=== PATIENT | female | born 1990 | race Caucasian/White ===

== ENCOUNTER 2021-08-22 07:48 | Inpatient (IN) ==
[2021-08-22] MEDS ORDERED: OXYTOCIN 30 UNITS/500 ML BAG IV PRN ×3 (08:04→23:09)
[2021-08-22 09:03] LABS: Hematocrit (blood only) 37.2 % (37-47); Hemoglobin 12.7 g/dL (12.0-16.0); Mean Corpuscular Hemoglobin 29.1 pg (25-34); Mean Corpuscular Hgb Conc 34.1 g/dL (32-36); Mean Corpuscular Volume 85.3 fL (80-100); Mean Platelet Volume 10.8 fL (7.4-10.4); Platelet Count 202 K/uL (130-400); RDW Standard Deviation 40.6 fL (36.4-46.3); Red Blood Count 4.36 M/uL (4.2-5.4); White Blood Count 14.48 K/uL (4.8-10.8)
[2021-08-22 09:03] LABS: Creatinine Urine Random 57.6 mg/dl; Protein Creatinine Ratio Urine 0.2 (0-0.2); Total Protein Urine Random 13.2 mg/dl (0-11.9)
--- NOTE | 2021-08-22 09:05 | History & Physical Report ---
Date of Service August 22, 2021 Assessment & Plan (1) Chronic hypertension affecting : Plan: 30 y/o G1 at 38 3/7 wga presenting for IOL for cHTN no meds VSS Fetus cat 1 Labor - chong bulb removed and pt 3cm. Will start pitocin cHTN - baseline labs ordered, asymptomatic GBS neg Epidural prn Admission and Anticipated Discharge Date Admission Date: August 22, 2021 History of Present Illness Chief Complaint: IOL Primary Care Provider: Sonia Trevino MD 30 y/o G1 at 38 3/7 wga w/ [place] 09/02 by LMP c/w 1st tri US presents for IOL for cHTN no meds. +FM; denies regular ctx, LOF, VB. Denies MARSHALL, vision change, CP, SOB, RUQ/epigastric pain PNI: cHTN no meds thyroid nodule Past [employer] Hx: G1 Cycles q27-31d Denies hx STIs 01/2021 neg cytology, denies hx abnl Allergies Allergy/AdvReac Type Severity Reaction Status Date / Time No Known Allergies Allergy Unknown Uncoded 07/25/21 14:50 Home Medications Medication Instructions Recorded Confirmed Type prenat.vits,marlo,[id number] 1 tab PO DAILY 01/07/21 08/22/21 History aspirin 81 mg tablet,delayed 81 mg PO DAILY 03/05/21 08/22/21 History release (Adult Low Dose Aspirin) loratadine 10 mg tablet (Claritin) 10 mg PO DAILY 03/05/21 08/22/21 History Patient History Medical History (Updated 08/22/21 @ 09:07 by Victoria Rehman MD) Family history of hypothyroidism Solitary thyroid nodule Subungual hematoma Surgical History (Updated 11/03/19 @ 08:44 by Lisa Navarrete) History of wisdom tooth extraction Family History (Updated 03/05/21 @ 12:38 by Carito Valladares) Grandmother (Paternal) Glaucoma Grandmother (Maternal) Glaucoma Father Hypothyroidism Other Myocardial infarction Denies family history of Ovarian cancer Prostate cancer Breast cancer Colorectal cancer Social History (Updated 03/05/21 @ 12:37 by Carito Valladares) Smoking Status: Never smoker Second Hand Exposure: No; Hx Alcohol Use: No Hx Substance Use: No Preferred Language: Kinyarwanda Communication Ability: Effective Windshield Repair Technician Required: No Beliefs That Will Affect Care: None marital status: marital status details: Gautam (28) [phone] Current Living Situation: Spouse Current Living Situation Comment: Lives with and 2 dogs current occupational status: employed current occupation: physical therapist Other Information That Helps Us Care for You: No Feels Safe at Home: Yes Safety Concerns: Feels Safe At This Time Assistive Devices: None Physical Exam Constitutional: WD/WN, vitals as above Respiratory: normal respiratory effort; no respiratory distress and no labored breathing Genitourinary: OB Exam Abdomen: + vertex (by suture confirmed by BSUS) and + estimated weight (7-8) Manual OB Exam: + cervical dilation 3 cm, + cervical effacement 70% and + station -2 OB Exam Monitor Tracing: + external FHT monitor used, + external uterine monitor used (irreg) and + category I (140/mod/+accel/-decel) Chong balloon palpated in vagina and removed prior to cervical check Results & Data ([facility]) Vital Signs (Past 12 Hours) Vital Signs Temp Pulse Resp BP 08/22/21 07:51 98.6 F 90 20 146/83 H Laboratory Results OB Labs: Blood Type A Positive 01/21/21 Antibody Screen NEGATIVE 01/21/21 Hemoglobin 12.8 g/dL (12.0-16.0) 06/09/21 Hematocrit 39.0 % (37-47) 06/09/21 Mean Corpuscular Volume 85.9 fL (80-100) 01/21/21 Platelet Count 253 K/uL (130-400) 01/21/21 Rubella IgG Antibody Immune (Immune) 01/21/21 Rapid Plasma Reagin Nonreactive (Nonreactive) 01/21/21 Hepatitis B Surface Antigen Neg (Neg) 01/21/21 HIV (1&2) Ab and P24 Ag, 4th Gener Neg (Neg) 01/21/21 Glucose 1 Hour 50 gm Load 82 mg/dl (70-130) 06/09/21 OB Optional Labs: Chlamydia trachomatis RNA NOT DETECTED (NOT DETECTED) 01/21/21 Neisseria gonorrhoeae RNA NOT DETECTED (NOT DETECTED) 01/21/21 Thyroid Stimulating Hormone (TSH) 2.550 uIu/ml (0.300-4.500) 06/09/21 low risk cfdna neg cf/sma GBS neg Coding Level of Care Code None Diagnoses Chronic hypertension affecting O10.919
[2021-08-22] MEDS: LACTATED RINGER'S 1,000 ML IV PRN ×3 (09:19→20:50)
[2021-08-22 09:29] LABS: Albumin Level 2.4 gm/dl (3.4-5.0); Calcium 9.3 mg/dl (8.5-10.1); Est GFR (African American) 142.8 ml/min; Est GFR (Non-African American) 123.2 ml/min; Potassium 3.7 mmol/L (3.5-5.1)
[2021-08-22 09:31] LABS: Albumin Globulin Ratio 0.6 (0.9-2); Bilirubin,Total 0.4 mg/dl (0.2-1); Total Protein 6.4 gm/dl (6.4-8.2)
[2021-08-22] MEDS ORDERED: PATIENT'S ALLERGY INFO NEEDS ENTERED SCH (11:15)
--- NOTE | 2021-08-22 13:26 | Labor Progress Brief Note ---
Date of Service August 22, 2021 Subjective Comfortable, feeling some tightening but not painful Assessment & Plan (1) Chronic hypertension affecting : Plan: 30 y/o G1 at 38 3/7 wga presenting for IOL for cHTN no meds VSS Fetus cat 1 Labor - pit at 10, s/p arom to try to get better and more painful contraction pattern cHTN - baseline labs wnl, asymptomatic. BPs wnl GBS neg Epidural prn Admission and Anticipated Discharge Date Admission Date: August 22, 2021 Physical Exam Genitourinary: Manual OB Exam: + cervical dilation (3-4), + cervical effacement 70%, + station -2 and + amniotic fluid (arom clear) OB Exam Monitor Tracing: + external FHT monitor used, + external uterine monitor used (irreg) and + category I (120/mod/+accel/-decel) Results & Data ([facility]) Vital Signs (Past 12 Hours) Vital Signs Temp Pulse Resp BP 08/22/21 12:31 97.7 F 67 16 131/82 08/22/21 11:32 66 127/86 08/22/21 10:30 72 18 124/79 08/22/21 10:15 63 20 128/83 08/22/21 10:00 75 132/82 08/22/21 09:45 71 20 132/84 08/22/21 09:29 68 122/80 08/22/21 09:02 98.6 F 90 20 146/83 H 08/22/21 07:51 98.6 F 90 20 146/83 H Coding Level of Care Code None Diagnoses Chronic hypertension affecting O10.919
--- NOTE | 2021-08-22 16:25 | Labor Progress Brief Note ---
Date of Service August 22, 2021 Subjective Getting very uncomfortable Assessment & Plan (1) Chronic hypertension affecting : Plan: 30 y/o G1 at 38 3/7 wga presenting for IOL for cHTN no meds VSS Fetus cat 1 Labor - progressing nicely, getting uncomfortable cHTN - baseline labs wnl, asymptomatic. BPs mild range however suspect due to pain as she is visibly uncomfortable now GBS neg Desires epidural now, anesthesia made aware Admission and Anticipated Discharge Date Admission Date: August 22, 2021 Physical Exam Genitourinary: Manual OB Exam: + cervical dilation (4-5), + cervical effacement 80% and + station -1 OB Exam Monitor Tracing: + external FHT monitor used, + external uterine monitor used (irreg) and + category I (125/mod/+accel/-decel) Results & Data ([facility]) Vital Signs (Past 12 Hours) Vital Signs Temp Pulse Resp BP 08/22/21 15:57 64 141/87 H 08/22/21 15:35 97.9 F 62 20 152/101 H 08/22/21 15:34 65 160/108 H 08/22/21 14:31 70 131/80 08/22/21 13:51 98.1 F 08/22/21 13:31 65 128/88 08/22/21 12:31 97.7 F 67 16 131/82 08/22/21 11:32 66 127/86 08/22/21 10:30 72 18 124/79 08/22/21 10:15 63 20 128/83 08/22/21 10:00 75 132/82 08/22/21 09:45 71 20 132/84 08/22/21 09:29 68 122/80 08/22/21 09:02 98.6 F 90 20 146/83 H 08/22/21 07:51 98.6 F 90 20 146/83 H Coding Level of Care Code None Diagnoses Chronic hypertension affecting O10.919
--- NOTE | 2021-08-22 16:25 | Anesthesiology Consultation ---
Date of Service August 22, 2021 Assessment & Plan (1) Encounter for pre-operative examination: Chart Review Chart Review: Acceptable Risk for Labor Epidural History Height/Weight Height: 5 ft 7.5 in Weight: 74.389 kg Allergies Allergy/AdvReac Type Severity Reaction Status Date / Time No Known Allergies Allergy Unknown Uncoded 07/25/21 14:50 Medications Home Medications Medication Instructions Recorded Confirmed Last Taken prenat.vits,marlo,grj-[id number]-ttsgd 1 tab PO DAILY 01/07/21 08/22/21 08/22/21 07:00 aspirin 81 mg tablet,delayed 81 mg PO DAILY 03/05/21 08/22/21 08/21/21 08:30 release (Adult Low Dose Aspirin) loratadine 10 mg tablet (Claritin) 10 mg PO DAILY 03/05/21 08/22/21 08/19/21 08:30 Active Medications Generic Name Dose Route Start Last Admin Trade Name Freq PRN Reason Stop Dose Admin Lactated Ringer's 1,000 mls @ 125 mls/hr 08/22/21 08:04 08/22/21 16:23 Lr IV 08/24/21 08:03 999 mls/hr .Q8H PRN Administration L&D Protocol Protocol Oxytocin 30 units in 500 mls @ 14 mls/hr 08/22/21 08:59 08/22/21 14:45 Pitocin IV 08/24/21 08:58 0.84 units/hr .Q24H PRN 14 mls/hr Labor Induction/Augmentation Titration Protocol 0.84 UNITS/HR Past Medical History Medical History Family history of hypothyroidism Solitary thyroid nodule Subungual hematoma Past Family History Family History Grandmother (Paternal) Glaucoma Grandmother (Maternal) Glaucoma Father Hypothyroidism Other Myocardial infarction Denies family history of Ovarian cancer Prostate cancer Breast cancer Colorectal cancer Past Surgical History Surgical History History of wisdom tooth extraction Social History Smoking Status: Never smoker Hx Alcohol Use: No Hx Substance Use: No substance use type: does not use Physical Exam Vital Signs Last Vital Signs Temp 36.6 C 08/22/21 15:35 Pulse 64 08/22/21 15:57 Resp 20 08/22/21 15:35 BP 141/87 H 08/22/21 15:57 Testing Laboratory Results 08/22/21 08:41 08/22/21 08:41
[2021-08-22] MEDS ORDERED: SODIUM CHLORIDE 0.9% INJ 10 ML VIAL ONE (16:28)
[2021-08-22] MEDS ORDERED: fentaNYL citrate 100 MCG/2 ML VIAL ONE (16:28)
[2021-08-22] MEDS ORDERED: ePHEDrine sulfate 50 MG/ML AMP ONE (16:28)
[2021-08-22] MEDS ORDERED: BUPIVACAINE 0.25% 30 ML VIAL ONE (16:28)
[2021-08-22] MEDS ORDERED: fentaNYL 2MCG/ML ROPIVACAINE 1.25MG/ML 100 ML BAG EPI ONE (16:29)
[2021-08-22] MEDS ORDERED: fentaNYL 2MCG/ML ROPIVACAINE 1.25MG/ML 100 ML BAG EPI PRN (16:53)
[2021-08-22] MEDS ORDERED: ONDANSETRON INJ 2 MG/ML 2 ML VIAL IV PRN (16:53)
[2021-08-22] MEDS ORDERED: ePHEDrine sulfate 50 MG/ML AMP IV PRN (16:53)
[2021-08-22] MEDS ORDERED: NALOXONE HCL 0.4 MG/1 ML VIAL/CARP IV PRN (16:53)
[2021-08-22] MEDS ORDERED: NALOXONE HCL 1 MG in SODIUM CHLORIDE 0.9% 1000ML 1,000 ML IV PRN (16:53)
--- NOTE | 2021-08-22 19:13 | Labor Progress Brief Note ---
Date of Service August 22, 2021 Subjective some right sided pain but much more comfortable Assessment & Plan (1) Chronic hypertension affecting : Plan: 30 y/o G1 at 38 3/7 wga presenting for IOL for cHTN no meds VSS Fetus cat 1 Labor - will labor down an start pushing cHTN - baseline labs wnl, asymptomatic. BPs normalized GBS neg Epidural in place Admission and Anticipated Discharge Date Admission Date: August 22, 2021 Physical Exam Genitourinary: Manual OB Exam: + cervical dilation (4-5) 10 cm, + cervical effacement 100% and + station + 2 OB Exam Monitor Tracing: + external FHT monitor used, + external uterine monitor used (q3) and + category I (120/mod/+accel/-decel) Results & Data ([facility]) Vital Signs (Past 12 Hours) Vital Signs Temp Pulse Resp BP Pulse Ox 08/22/21 19:06 81 96 08/22/21 19:05 98.1 F 18 08/22/21 19:01 85 97 08/22/21 18:59 72 128/72 08/22/21 18:56 60 98 08/22/21 18:51 60 97 08/22/21 18:46 65 97 08/22/21 18:44 64 122/67 08/22/21 18:41 61 97 08/22/21 18:36 66 97 08/22/21 18:31 64 96 08/22/21 18:29 65 127/74 08/22/21 18:26 66 97 08/22/21 18:21 62 97 08/22/21 18:16 63 97 08/22/21 18:15 67 133/74 08/22/21 18:11 71 96 08/22/21 18:06 71 97 08/22/21 18:01 70 97 08/22/21 17:59 67 135/84 08/22/21 17:56 64 96 08/22/21 17:51 63 96 08/22/21 17:46 76 97 08/22/21 17:45 67 124/79 08/22/21 17:44 69 119/76 08/22/21 17:41 61 96 08/22/21 17:36 64 96 08/22/21 17:31 63 96 08/22/21 17:29 60 122/78 08/22/21 17:26 68 97 08/22/21 17:21 67 97 08/22/21 17:16 68 96 08/22/21 17:15 71 20 120/76 08/22/21 17:11 76 97 08/22/21 17:06 72 96 08/22/21 17:01 66 96 08/22/21 16:57 98.2 F 67 20 117/63 08/22/21 16:56 71 96 08/22/21 16:55 68 118/63 08/22/21 16:53 65 117/61 94 08/22/21 16:51 63 20 118/65 98 08/22/21 16:49 60 117/67 08/22/21 16:47 64 22 126/65 08/22/21 16:46 72 119/65 98 08/22/21 16:41 87 99 08/22/21 16:36 80 99 08/22/21 16:31 73 146/89 H 08/22/21 15:57 64 141/87 H 08/22/21 15:35 97.9 F 62 20 152/101 H 08/22/21 15:34 65 160/108 H 08/22/21 14:31 70 131/80 08/22/21 13:51 98.1 F 08/22/21 13:31 65 128/88 08/22/21 12:31 97.7 F 67 16 131/82 08/22/21 11:32 66 127/86 08/22/21 10:30 72 18 124/79 08/22/21 10:15 63 20 128/83 08/22/21 10:00 75 132/82 08/22/21 09:45 71 20 132/84 08/22/21 09:29 68 122/80 08/22/21 09:02 98.6 F 90 20 146/83 H 08/22/21 07:51 98.6 F 90 20 146/83 H Coding Level of Care Code None Diagnoses Chronic hypertension affecting O10.919
--- NOTE | 2021-08-22 21:15 | Delivery Summary ---
Vaginal Delivery Summary Date of Service August 22, 2021 Vaginal Delivery Summary and 2nd Degree LAC PREOPERATIVE DIAGNOSIS: 1. Single intrauterine at 38 3/7 2. Chronic hypertension without medication POSTOPERATIVE DIAGNOSIS: 1. Single intrauterine at 38 3/7 2. Chronic hypertension without medication 3. Delivered PROCEDURE: 1. Normal spontaneous vaginal delivery. SURGEON: Victoria Rehman MD ANESTHESIA: Epidural. ESTIMATED BLOOD LOSS: 300 mL FLUIDS: Continuous LR. URINE OUTPUT: None. COMPLICATIONS: None. CONDITION: Stable. INDICATIONS: 30 y/o G1 at 38 3/7 wga presented for IOL for cHTN w/o medication today. She underwent chong bulb placement last evening and that was removed this morning. She was started on pitocin. She underwent artificial rupture of membranes and received an epidural. She progressed to complete and desired to push FINDINGS: A viable male infant, weight pending with Apgars of 8 and 9 at 1 and 5 minutes respectively. SPECIMEN: Cord blood OPERATIVE REPORT: The patient progressed to 10 cm, 100% effaced and +2 station, pushed over intact perineum with anesthesia to deliver a viable male infant, weight and Apgars as above. Head of delivered in SOFI position. No nuchal cord was present. Body and shoulders were delivered without difficulty. was delivered to maternal abdomen and nursing staff. Delayed cord clamping was performed for 60 seconds. Cord was clamped and cut. Cord blood was obtained. Placenta delivered spontaneously intact with 3-vessel cord. IV oxytocin and fundal massage were given for excellent hemostasis. Vagina, cervix, perineum, and placenta were inspected. A second degree and R labial laceration were noted and repaired using 3-0 and 4-0 vicryl in the usual fashion. A hemostatic L labial laceration was noted and not needed to be repaired. Sponge and needle counts correct x2. No sponges were left behind. Mother and stable in immediate period. [facility] Vaginal Delivery Charge Vaginal Delivery Codes: 53049 global code for the antepartum, delivery, and post- Delivery Type Details: and 2nd Degree LAC
[2021-08-22] MEDS ORDERED: HYDROCORTISONE ACETATE 25 MG SUPP PR PRN (23:09)
[2021-08-22] MEDS ORDERED: SUPERCREAM 0.870% 15 GM JAR EXT PRN (23:09)
[2021-08-22] MEDS ORDERED: bisacodyL 10 MG SUPP PR PRN (23:09)
[2021-08-22] MEDS ORDERED: BENZOCAINE 20% AER SPR 82.5 GM CAN EXT PRN (23:09)
[2021-08-22] MEDS ORDERED: ACETAMINOPHEN 325 MG TAB PO PRN (23:09)
[2021-08-22] MEDS ORDERED: DIPHTHERIA/TETANUS/PERTUSSIS 0.5 ML SYR/VIAL IM ONE (23:09)
--- NOTE | 2021-08-22 23:38 | Anesthesia Procedure Note ---
Date of Service August 22, 2021 Anesthesia Post Epidural Note Vital Signs Vital Signs: Temp Pulse Resp BP Pulse Ox 36.7 C 71 18 138/83 96 08/22/21 21:00 08/22/21 22:53 08/22/21 23:00 08/22/21 22:53 08/22/21 20:51 Pain Intensity Back: Pain Intensity: 4 Notes Mental Status: alert / awake / arousable and participated in evaluation Nausea / Vomiting: adequately controlled Pain: adequately controlled Airway Patency, RR, SpO2: stable & adequate BP & HR: stable & adequate Hydration State: stable & adequate Neuraxial Anesthesia: was administered and sensory block is resolving Anesthetic Complications: no major complications apparent Epidural: Removed without complications and With tip intact
--- NOTE | 2021-08-23 06:20 | Obstetrical Progress Note ---
Date of Service <Farrah Dey DO - Last Filed: 08/23/21 06:33> August 23, 2021 Assessment & Plan <Farrah Dey DO - Last Filed: 08/23/21 06:33> (1) Chronic hypertension affecting : (2) Encounter for care and examination after delivery: 30 yo post op day1 from [facility] with chronic HTN, doing well. -Continue routine post care. -vital signs reviewed and WNL (Tmax 37.0) -Blood Type A+, GBS-, Rubella immune -Encourage ambulation, monitor and control pain with Motrin, tylenol PRN, resume regular diet, monitor lochia -encourage breast feeding -hemoglobin 12.7 Day #:: 1 <Victoria Rehman MD - Last Filed: 08/23/21 07:35> (1) Chronic hypertension affecting : (2) Encounter for care and examination after delivery: Subjective <Farrah Dey DO - Last Filed: 08/23/21 06:33> Ambulation: ambulating normally Voiding: no voiding problems Passing Gas:: Yes Diet Tolerance:: regular diet Lochia:: Small Feeding Type:: breast feeding Current Pain Level(1-10): 0 (pain well controlled on medication) Review of Systems Denies fever, chills, sweats Denies shortness of breath, difficulty breathing, chest pain, palpitations, chest pressure. Denies breast pain. Denies dysuria. Denies headache or changes in vision. Physical Exam <Farrah Dey DO - Last Filed: 08/23/21 06:33> General: Alert, oriented. No acute distress. Cardiac: Regular rate and rhythm, no murmurs/rubs/gallops. Respiratory: Clear to auscultation bilaterally a/p, no wheezes/rales/rhonchi. No increased work of breathing. Symmetrical chest rise. No respiratory distress. Abdomen: Soft, nontender, nondistended. Bowel sounds present. Uterus: Uterine fundus firm, palpable 1 cm below umbilicus. Lower Extremities: No lower extremity edema or swelling. No deep calf pain. Evelyne's negative bilaterally.. Results & Data ([facility]) <Farrah Dey DO - Last Filed: 08/23/21 06:33> Vital Signs (Past 12 Hours) Vital Signs Temp Pulse Pulse Resp BP BP Pulse Ox 08/23/21 03:54 37.0 C 74 18 117/70 08/22/21 23:28 36.9 C 68 18 149/87 H 08/22/21 23:00 18 08/22/21 22:53 71 138/83 08/22/21 22:51 68 131/82 08/22/21 22:31 79 133/85 08/22/21 22:30 18 08/22/21 22:11 78 121/83 08/22/21 22:01 72 120/72 08/22/21 22:00 18 08/22/21 21:51 75 124/73 08/22/21 21:45 18 08/22/21 21:41 80 132/76 08/22/21 21:31 74 133/76 08/22/21 21:30 18 08/22/21 21:21 75 143/84 H 08/22/21 21:15 18 08/22/21 21:11 73 134/79 08/22/21 21:00 36.7 C 18 08/22/21 20:59 80 132/74 08/22/21 20:51 86 96 08/22/21 20:46 86 96 08/22/21 20:44 80 131/84 08/22/21 20:41 86 96 08/22/21 20:36 143 H 99 08/22/21 20:31 87 95 08/22/21 20:30 20 08/22/21 20:29 93 H 89 L 08/22/21 20:26 92 H 100 08/22/21 20:23 116 H 91 08/22/21 20:21 121 H 83 L 08/22/21 20:18 88 89 L 08/22/21 20:16 98 H 100 08/22/21 20:15 36.6 C 97 H 18 124/71 08/22/21 20:11 84 99 08/22/21 20:06 71 100 08/22/21 20:01 73 99 08/22/21 20:00 68 18 137/80 08/22/21 19:56 71 100 08/22/21 19:51 69 100 08/22/21 19:46 72 100 08/22/21 19:45 74 129/82 08/22/21 19:41 74 100 08/22/21 19:36 69 100 08/22/21 19:31 68 100 08/22/21 19:30 18 08/22/21 19:29 66 137/80 08/22/21 19:26 67 100 08/22/21 19:21 70 100 08/22/21 19:16 66 132/79 100 08/22/21 19:15 18 08/22/21 19:11 72 100 08/22/21 19:06 81 96 08/22/21 19:05 36.7 C 18 08/22/21 19:01 85 97 08/22/21 18:59 72 128/72 08/22/21 18:56 60 98 08/22/21 18:51 60 97 08/22/21 18:46 65 97 08/22/21 18:44 64 122/67 08/22/21 18:41 61 97 08/22/21 18:36 66 97 08/22/21 18:31 64 96 08/22/21 18:29 65 127/74 08/22/21 18:26 66 97 08/22/21 18:21 62 97 <Victoria Rehman MD - Last Filed: 08/23/21 07:35> Co-Signing Physician Notes Resident Physician Supervision Note: I interviewed and examined the patient. Discussed with Dr. Dey and agree with findings and plan as documented in the note. Any exceptions or clarifications are listed here: PP1 s/p after IOL for cHTN no meds. Meeting pp milestones, VSS, exam benign. Continue routine pp care Documented By: Victoria Rehman MD Resident Activity Tracking <Farrah Dey DO - Last Filed: 08/23/21 06:33> Resident Involvement: Resident Care Provided Care Provided: OB Delivery
[2021-08-23] MEDS: PRENATAL VITAMIN 1 TAB PO SCH (08:32)
[2021-08-23] MEDS: IBUPROFEN 600 MG TAB PO PRN ×3 (08:32→17:52)
[2021-08-23] MEDS: DOCUSATE SODIUM 100 MG CAP PO SCH ×2 (08:32→20:20)
[2021-08-23] MEDS ORDERED: bisacodyL 5 MG TABEC PO SCH (20:00)
[2021-08-24] MEDS: IBUPROFEN 600 MG TAB PO PRN ×2 (01:04→08:42)
--- NOTE | 2021-08-24 07:10 | Obstetrical Progress Note ---
Date of Service August 24, 2021 Assessment & Plan (1) Encounter for care and examination after delivery: (2) Chronic hypertension affecting : Pressures have been good. Not on any chronic medications. Plan d/c. Instructions given. f/u in the office late in the week for a blood pressure check. Subjective Ambulation: ambulating normally Voiding: no voiding problems Passing Gas:: Yes Diet Tolerance:: regular diet Lochia:: Small Feeding Type:: breast feeding Physical Exam Constitutional WD/WN, vitals as above Cardiovascular Extremities: no calf tenderness and no edema Gastrointestinal (Abdomen) soft, nt, nd ff/nt 1 below u Results & Data ([facility]) Vital Signs (Past 12 Hours) Vital Signs Temp Pulse Resp BP Pulse Ox 08/23/21 23:20 36.8 C 74 16 125/76 97
[2021-08-24] MEDS: DOCUSATE SODIUM 100 MG CAP PO SCH (08:42)
[2021-08-24] MEDS: PRENATAL VITAMIN 1 TAB PO SCH (08:42)
== END 2021-08-24 13:50 | disposition home or self-care (01) | DRG 807 ==
LOC: 4S1 07:48 → 4S2 23:46

== ENCOUNTER 2024-03-07 14:01 | Inpatient (IN) ==
--- NOTE | 2024-03-07 14:12 | History & Physical Report ---
Date of Service March 07, 2024 Assessment & Plan (1) Uterine contractions at greater than 20 weeks of gestation: (2) Normal labor: Plan L&D admit as inpatient order set placed, including, CBC w/out diff, blood bank hold, IV fluids (LR, 125 mL/hr), and Oxytocin, PRN (20 U/hr, for bleeding). External heart monitor and external tocodynamometer already placed. Cervix checked and patient already completely effaced, fully dilated, already in active labor and will begin pushing with her contractions. History of Present Illness Chief Complaint: frequent contractions, pain 7/10 w/ contractions, Primary Care Provider: Sonia Trevino MD , 39w6d, confirmed via ultrasound. Here for vaginal delivery. There have been no complications with this . Has been attending OB appointments regularly. Currently taking levothyroxine and pre-vasquez vitamins. Patient arrives with very frequent contractions, back and abdominal pain, significant pelvic pressure. Contractions: yes, very frequent Fluid or Blood loss: none Movement: active Labs - Blood type, A+ - Antibody screen, negative - Hgb, 13.1 - Hct, 38.6 - Wbc, 16.6 - Plt, 190 - Rubella, immune - VDRL/RPR, non-reactive - Gonorrhea, not detected - Chlamydia, not detected - HIV, non-reactive - HbSAg, non-reactive - GBS, negative - Glucose tolerance x 2, 134 Allergies Allergy/AdvReac Type Severity Reaction Status Date / Time No Known Allergies Allergy Verified 03/07/24 14:47 Home Medications Medication Instructions Recorded Confirmed Type prenat.vits,marlo,ljn-uexb-xpirw 1 tab PO DAILY 01/07/21 03/07/24 History levothyroxine 100 mcg tablet 100 mcg PO DAILY 03/07/24 03/07/24 History Past Med/Surg History Problem List (Updated 03/07/24 @ 16:20 by Javi Merrill MD) Normal labor Uterine contractions at greater than 20 weeks of gestation Encounter for supervision of normal in multigravida Hypothyroid in , antepartum Hypothyroidism Vitamin D deficiency, unspecified Family history of hypothyroidism Encounter for anatomic survey Non-smoker (Acute) Elevated blood pressure reading in office without diagnosis of hypertension (Acute) Medical History (Updated 03/07/24 @ 16:20 by Javi Merrill MD) Missed with demise before 20 completed weeks of gestation with uncertain viability Varicella vaccination Post thyroiditis Chronic hypertension affecting Solitary thyroid nodule Subungual hematoma Surgical History History of wisdom tooth extraction Family History Grandmother (Paternal) Glaucoma Grandmother (Maternal) Glaucoma Father Hypothyroidism Other Myocardial infarction Denies family history of Ovarian cancer Prostate cancer Breast cancer Colorectal cancer Social History Smoking Status: Never smoker Second Hand Exposure: No; Do You Dip or Chew Tobacco: No; Hx Alcohol Use: No Hx Substance Use: No Preferred Language: Guatemalan Communication Ability: Effective Ventilation Mechanic Required: No Beliefs That Will Affect Care: None marital status: marital status details: Gautam Reyes (30) [phone] Current Living Situation: Family Current Living Situation Comment: Lives with , child and 2 dogs current occupational status: employed current occupation: physical therapist Other Information That Helps Us Care for You: No Feels Safe at Home: Yes Safety Concerns: Feels Safe At This Time Assistive Devices: None Review of Systems Constitutional: + body aches; no fever and no chills Eyes: no diplopia, not seeing flashes and no worsening vision Respiratory: no cough, no chest congestion and no dyspnea Cardiovascular: no chest pain and no palpitations Gastrointestinal: + abdominal pain (w/ contractions) and + constant urge to pass stools (due to pressure associated w/ contractions); no nausea, no vomiting, no constipation and no diarrhea/loose stools Musculoskeletal: + back pain Integumentary: no rash, no lesions and no pruritus Neurologic: no tingling, no numbness and no headache(s) Physical Exam Constitutional: WD/WN, vitals as above Respiratory: normal respiratory effort, lungs clear to auscultation Cardiovascular: RRR, no murmur, no edema Extremities: normal capillary refill; no calf tenderness and no pedal edema Gastrointestinal (Abdomen): Inspection/Auscultation: abdomen normal to inspection, normal bowel sounds and + significant pannus (gravid uterus) Skin: no rashes, warm and dry Psychiatric: A+Ox3, euthymic affect Genitourinary: Manual OB Exam: + cervical dilation 10 cm and + cervical effacement 100% OB Exam Monitor Tracing: + external FHT monitor used and + external uterine monitor used Results & Data Results & Data Vital Signs (Past 12 Hours) Vital Signs Pulse BP 03/07/24 14:09 71 141/81 H Supervising Physician Co-Signing Physician Notes Resident Physician Supervision Note: I was present with Dr. Hamlin during the history and exam. I discussed the case with the resident and agree with the findings and plan as documented in the note. Any exceptions or clarifications are listed here: [None] Documented By: David Villegas MD, FACOG
[2024-03-07] MEDS ORDERED: LACTATED RINGER'S 1,000 ML IV PRN (14:18)
[2024-03-07] MEDS ORDERED: LIDOCAINE 1% LOCAL 20 ML VIAL INFIL PRN (14:18)
[2024-03-07] MEDS ORDERED: ACETAMINOPHEN 325 MG TAB PO PRN (14:37)
[2024-03-07] MEDS ORDERED: BENZOCAINE 20% SPRY 85 APPLN/85 GM CAN EXT PRN (14:37)
[2024-03-07] MEDS ORDERED: oxyCODONE/ACETAMINOPHEN 5mg/325mg TAB PO PRN (14:37)
[2024-03-07] MEDS ORDERED: HYDROCORTISONE ACETATE 25 MG SUPP PR PRN (14:37)
[2024-03-07] MEDS ORDERED: OXYTOCIN 30 UNITS/NSS 30 UNITS/500 ML BAG IV PRN (14:37)
[2024-03-07] MEDS ORDERED: bisacodyL 10 MG SUPP PR PRN (14:37)
[2024-03-07] MEDS ORDERED: DIPHTHER/TETAN/PERTUS Vaccine (Tdap, Adol/Adult) 0.5mL IM ONE (14:37)
--- NOTE | 2024-03-07 14:39 | Delivery Summary ---
Vaginal Delivery Summary Date of Service March 07, 2024 Vaginal Delivery Summary Spontaneous vaginal delivery the patient arrived from home was her second baby GBS negative in active labor she was checked and found to be fully dilated with a bulging bag of membranes I offered the patient to try and get an epidural but she had a desire to push uncontrollably so I recommended artificial rupture of membranes this was done for clear fluid she then delivered the baby's head shortly thereafterwards no nuchal cord fluid was clear gentle traction on the baby no excessive force no difficulties with delivery live vigorous female infant cord clamped and cut cord blood obtained placenta removed with gentle traction IV Pitocin started perineum inspected there was no sign of tearing sponge and instrument counts correct quantitative blood loss 50 mL [facility] Vaginal Delivery Charge Delivery Type Details:
[2024-03-07] MEDS: OXYTOCIN 30 UNITS/NSS 30 UNITS/500 ML BAG IV PRN (14:40)
[2024-03-07] MEDS ORDERED: LACTATED RINGER'S 1,000 ML IV SCH (14:45)
[2024-03-07] MEDS: IBUPROFEN 600 MG TAB PO PRN (14:59)
[2024-03-07] MEDS: OXYTOCIN 30 UNITS/500ML NSS IV ONE (15:00)
[2024-03-07 15:30] LABS: Hematocrit (blood only) 38.6 % (37.0-47.0); Hemoglobin 13.1 g/dl (12.0-16.0); Mean Corpuscular Hgb Conc 33.9 g/dL (32.0-36.0); Mean Corpuscular Volume 85.4 fL (80.0-100.0); Mean Platelet Volume 10.3 fL (9.4-12.4); Platelet Count 190 K/uL (130-400); RDW Coefficient of Variation 12.4 % (11.5-14.5); RDW Standard Deviation 38.5 fL (36.4-46.3); Red Blood Count 4.52 M/uL (4.20-5.40); White Blood Count 16.63 K/ul (4.8-10.8)
[2024-03-07] MEDS ORDERED: ZOLPIDEM TARTRATE 5 MG TAB PO PRN (19:57)
[2024-03-07] MEDS: DOCUSATE SODIUM 100 MG CAP PO SCH (21:27)
[2024-03-08] MEDS: LEVOTHYROXINE SODIUM 100 MCG TABLET PO SCH (05:37)
--- NOTE | 2024-03-08 06:25 | Obstetrical Progress Note ---
Date of Service <Javi Merrill MD - Last Filed: 03/08/24 07:42> March 08, 2024 Assessment & Plan <Javi Merrill MD - Last Filed: 03/08/24 07:42> (1) (normal spontaneous vaginal delivery): Plan 33 yo , status post on 03/07/24, w/out complications. - Pt doing well clinically. Feels well today. Eating well, voiding well, ambulating well. Pain well controlled with PRN pain meds. - Routine care -- OOB, ambulation, diet progression as tolerated Vital Signs reviewed and WNL. (Tmax at 36.9) Hemoglobin Reviewed. 13.1 (date) 11.0 (today). WBC 16.6 immediately after delivery on 03/07/24. Blood Type: A+, GBS-, Rubella Immune. Encourage ambulation, monitor and control pain with Motrin PRN, resume regular diet, monitor lochia. Breast feeding encouraged. After discharge will have 6 week follow-up with Dr. Villegas. Pt counselled on discharge instructions, in the event they are going home that day. <David Villegas MD, FACOG - Last Filed: 03/08/24 07:44> (1) (normal spontaneous vaginal delivery): Subjective <Javi Merrill MD - Last Filed: 03/08/24 07:42> Ambulation: ambulating normally Voiding: no voiding problems Passing Gas:: Yes Diet Tolerance:: regular diet Lochia:: Moderate Feeding Type:: breast feeding Current Pain Level(1-10): 1 (cramping abdominal pain) Constitutional: + body aches; no fever or no chills Eyes: no diplopia, no seeing flashes or no worsening vision Respiratory: no cough, no chest congestion or no dyspnea Cardiovascular: no chest pain or no palpitations Gastrointestinal: + abdominal pain (w/ contractions) and + constant urge to pass stools (due to pressure associated w/ contractions); no nausea, no vomiting, no constipation or no diarrhea/loose stools Musculoskeletal: + back pain Integumentary: no rash, no lesions or no pruritus Neurologic: no tingling, no numbness or no headache(s) Physical Exam <Javi Merrill MD - Last Filed: 03/08/24 07:42> Constitutional WD/WN, vitals as above Respiratory normal respiratory effort, lungs clear to auscultation Cardiovascular RRR, no murmur, no edema Extremities: normal capillary refill; no calf tenderness and no pedal edema Gastrointestinal (Abdomen) Inspection/Auscultation: abdomen normal to inspection, normal bowel sounds and + significant pannus (gravid uterus) Skin no rashes, warm and dry Psychiatric A+Ox3, euthymic affect Genitourinary Manual OB Exam: + cervical dilation 10 cm and + cervical effacement 100% OB Exam Monitor Tracing: + external FHT monitor used and + external uterine monitor used Results & Data <Javi Merrill MD - Last Filed: 03/08/24 07:42> Vital Signs (Past 12 Hours) Vital Signs Temp Pulse Resp BP Pulse Ox O2 Del Method 03/08/24 05:10 36.9 C 63 16 116/73 98 Room Air 03/07/24 23:00 36.4 C L 66 16 118/69 97 Room Air 03/07/24 21:20 36.9 C 65 16 127/81 97 Room Air Supervising Physician <David Villegas MD, FACOG - Last Filed: 03/08/24 07:44> Co-Signing Physician Notes Resident Physician Supervision Note: I interviewed and examined the patient. Discussed with Dr. Hamlin and agree with findings and plan as documented in the note. Any exceptions or clarifications are listed here: [None] Documented By: David Villegas MD, FACOG
[2024-03-08 06:46] LABS: Hematocrit (blood only) 36.1 % (37.0-47.0); Mean Corpuscular Hemoglobin 28.6 pg (25.0-34.0); Mean Corpuscular Hgb Conc 33.2 g/dL (32.0-36.0); Mean Corpuscular Volume 86.2 fL (80.0-100.0); Mean Platelet Volume 10.4 fL (9.4-12.4); Platelet Count 200 K/uL (130-400); RDW Coefficient of Variation 12.6 % (11.5-14.5); RDW Standard Deviation 39.4 fL (36.4-46.3); Red Blood Count 4.19 M/uL (4.20-5.40); White Blood Count 12.47 K/ul (4.8-10.8)
[2024-03-08] MEDS: PRENATAL VITAMIN 1 TAB PO SCH (08:13)
[2024-03-08] MEDS ORDERED: bisacodyL 5 MG TABEC PO SCH (20:00)
== END 2024-03-08 15:30 | disposition home or self-care (01) | DRG 807 ==
LOC: OPB 14:01 → 4S1 14:03 → 4E2 17:37